=== PATIENT | male | born 1955 | race Caucasian/White ===

== ENCOUNTER → 2016-05-07 | Outpatient (CLI) | payer BC | LOC: RAD 16:01 | PROVIDERS: ATTEND Family Medicine | DX: L03.011 Cellulitis of right finger (principal) ==

== ENCOUNTER → 2016-05-07 | Outpatient (REF) | payer BC ==
[2016-05-07 17:41] LABS: BASOPHILS % (AUTO) 0 % (0-2); EOSINOPHILS # (AUTO) 0.1 10^3uL; EOSINOPHILS % (AUTO) 2 % (0-4); LYMPHOCYTES # (AUTO) 1.3 X10^3; MEAN CORPUSCULAR HGB CONC 34.8 g/dL (31.0-37.0); MEAN CORPUSCULAR VOLUME 94 FL (80-100); MEAN PLATELET VOLUME 11.3 FL (6.0-9.5); MONOCYTES # (AUTO) 0.4 X10^3; MONOCYTES % (AUTO) 9 % (3-11); NEUTROPHILS # (AUTO) 2.6 X10^3; NEUTROPHILS % (AUTO) 60 % (51-67); PLATELET COUNT 141 10^3uL (150-450)
[2016-05-07 18:02] LABS: MEAN CORPUSCULAR HEMOGLOBIN 32.7 PG (26.0-34.0)
[2016-05-07 18:21] LABS: ERYTHROCYTE SEDIMENTATION RT* 10 mm/hr (0-19)
== END ==
LOC: LAB 16:08 → EDSTATUS 16:10 → LAB 16:10
PROVIDERS: ATTEND Family Medicine
DX: L03.011 Cellulitis of right finger (principal)
CPT/HCPCS: 85025; 85652; 86140

== ENCOUNTER → 2016-05-21 | Outpatient (CLI) | payer BC ==
[2016-05-21 15:32] LABS: MEAN CORPUSCULAR HGB CONC 34.5 g/dL (31.0-37.0); MEAN PLATELET VOLUME 10.7 FL (6.0-9.5); WHITE BLOOD COUNT 4.54 10^3uL (4.0-11.0)
[2016-05-21 15:56] LABS: ALBUMIN 4.2 g/dL (3.4-5.0); ANION GAP 14.2 MEQ/L (3-15); CALCULATED IONIZED CALCIUM 4.1 mg/dL (3.8-4.6); TOTAL PROTEIN 6.9 g/dL (6.4-8.5)
== END ==
LOC: LAB 15:07
PROVIDERS: ATTEND Internal Medicine Rheumatology
DX: M15.0 Primary generalized (osteo)arthritis (principal); L40.8 Other psoriasis; L40.59 Other psoriatic arthropathy
CPT/HCPCS: 36415; 80053; 85027; 85652; 86140

== ENCOUNTER → 2016-08-14 | Outpatient (CLI) | payer BC ==
[~2016-08-14] MED LIST: LSNP10T PO; MELO15TA14; META800T PO; MTP50T PO; NAPR220C16 PO; TRAZ-28 PO; TRM50T PO
[2016-08-14 13:43] LABS: MEAN CORPUSCULAR HGB CONC 34.2 g/dL (31.0-37.0); MEAN PLATELET VOLUME 11.1 FL (6.0-9.5); WHITE BLOOD COUNT 5.06 10^3uL (4.0-11.0)
[2016-08-14 14:05] LABS: MEAN CORPUSCULAR HEMOGLOBIN 32.5 PG (26.0-34.0)
[2016-08-14 14:24] LABS: ALBUMIN 4.2 g/dL (3.4-5.0); CALCULATED IONIZED CALCIUM 3.9 mg/dL (3.8-4.6); TOTAL PROTEIN 7.1 g/dL (6.4-8.5)
== END ==
LOC: LAB 13:31
PROVIDERS: ATTEND Internal Medicine Rheumatology
DX: L40.8 Other psoriasis (principal); L40.59 Other psoriatic arthropathy
CPT/HCPCS: 36415; 80053; 85027; 85652; 86140